=== PATIENT | male | born 1970 | race Caucasian/White ===

== ENCOUNTER 2021-05-22 21:20 | Emergency (ER) | payer BC, SELFPAY ==
[2021-05-22 21:21] VITALS: BP 119/93; PULSE 96; RESP 18; TEMP 36.2; O2SAT 98; BMI 33.2
--- NOTE | 2021-05-22 21:39 | EDS_ITS ---
HPI History of Present Illness Chief Complaint: Lower Extremity Injury Informant: patient Occured/Mechanism Mechanism/Context: Yes fall Onset/Context/Timing Onset: Today Context: Sudden Onset Timing: Continuous Quality of Pain: Aching Location: Left lateral foot Current Severity: Moderate Maximum Severity: Severe Worsened by: Weightbearing, moving Relieved by: remaining still Associated Symptoms Associated Symptoms: Negative for Parasthesia, Weakness and Loss of Funtion Narrative Narrative: Patient slipped on ice and fell, inverting and plantar flexing his left foot and then landing on it. He is able to bear weight but it is difficult and painful to do so. No other injuries. [facility] Medical History no medical history no medical history Home Medications No Known/Unobtainable [No Known Home Medications] 09/22/15 [History Last Taken Unknown] Allergy/AdvReac Type Severity Reaction Status Date / Time Penicillins Allergy Swelling Verified 05/22/21 21:23 Social History Smoking Status: Former smoker ROS ROS ED Constitutional Constitutional ED: Denies chills or fever(s) Musculoskeletal Musculoskeletal: Reports extremity pain; Denies neck pain Integumentary Denies Abrasions, rash or wounds Neurologic Neurologic: Denies paresthesias or weakness EXAM Physical Exam Const Vital Signs: 05/22/21 21:21 Temperature 97.1 F L Temperature Source Temporal Pulse Rate 96 Respiratory Rate 18 Blood Pressure 119/93 H Blood Pressure Mean 101 Pulse Ox 98 Oxygen Delivery Method Room Air Positive well nourished and well developed General Appearance ED: well developed and NAD Neck full ROM and supple Back/Spine normal ROM and normal to inspection Extremity full ROM Extremity Narrative: Swelling and tenderness in the lateral dorsal left midfoot. No deformities. No plantar tenderness. No tenderness at the base of the fifth metatarsal, either malleolus, or throughout the lower leg including the proximal fibula. Toes nontender. Neurovascularly intact distally all toes. Neuro oriented x3, no focal motor deficits and no sensory deficits noted Sensorium / Orientation: alert Psych mental status grossly normal and thought process normal Skin no wounds Rashes: no rashes MDM MDM MDM Narrative Medical decision making narrative: Three-view x-ray series of the left foot on my interpretation shows a dorsal chip avulsion fracture, likely of the navicular. Patient given postop shoe, offered crutches, and refer to podiatry for what will likely be a nonoperative fracture. Radiography Diagnostic Testing: Clinical Impression(s) from Imaging Studies Foot X-Ray 05/22/21 21:47 IMPRESSION: 1. Small acute cortical fractures are present on the dorsum of the talus and navicular articulation consistent with a talonavicular ligamentous avulsion injury. Electronically Signed: Cristiano Basurto MD at 22:31 EST Reading Location ID and State: [facility] / [place] , Service support , Discharge Plan Triage Chief Complaint: Lower Extremity Injury ED Provider: Figueroa Lam Dx/Rx/DC Orders Clinical Impression: Closed avulsion fracture of navicular bone of left foot Instructions: ED Fracture, Foot Prescriptions: No Action No Known Home Medications RF: 0 Primary Care Provider: Tigist Farmer NP Referrals: Fina Enrique DPM [STAFF PHYSICIAN] - (Within the next week, call for appointment) Tigist Farmer NP, PROGRAMMER DEVELOPER-C [Primary Care Provider] - Disposition Disposition: Home, Self Care
--- NOTE | 2021-05-22 21:41 | ED.RN ---
ice pack applied to left foot
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
[2021-05-22 23:06] VITALS: BP 140/87; PULSE 80; RESP 16
== END 2021-05-22 23:07 | disposition home or self-care (01) ==
PROVIDERS: Emergency Provider Emergency Medicine; PCP Nurse Practitioner Primary Care; Visit Provider Emergency Medicine
DX: S92.252A Displaced fracture of navicular [scaphoid] of left foot, initial encounter for closed fracture (principal); W00.2XXA Other fall from one level to another due to ice and snow, initial encounter; Y93.9 Activity, unspecified; Y99.9 Unspecified external cause status; Y92.9 Unspecified place or not applicable; Z87.891 Personal history of nicotine dependence
CPT/HCPCS: 73630; 99283

== ENCOUNTER 2022-12-28 01:17 | Emergency (ER) | payer BC, SELFPAY ==
[2022-12-28 01:18] VITALS: BP 146/78; PULSE 76; RESP 18; TEMP 36.6; O2SAT 100; BMI 22.7
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
== END 2022-12-28 02:50 | disposition home or self-care (01) ==
PROVIDERS: Emergency Provider Emergency Medicine; PCP Nurse Practitioner Primary Care; Visit Provider Emergency Medicine
DX: S06.2X0A Diffuse traumatic brain injury without loss of consciousness, initial encounter (principal); S01.111A Laceration without foreign body of right eyelid and periocular area, initial encounter; Z87.891 Personal history of nicotine dependence; H11.30 Conjunctival hemorrhage, unspecified eye; Y04.8XXA Assault by other bodily force, initial encounter
CPT/HCPCS: 12011; 70450; 72125; 99283